=== PATIENT | female | born 1995 | race African-American/Black ===

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

== ENCOUNTER → 2019-08-21 | Outpatient (CLI) | payer BC ==
--- NOTE | 2019-08-21 17:54 | RAD ---
EXAM: 3 views of the right ankle DATE: 08/21/2019 5:17 PM INDICATION: Reason: CHRONIC ANKLE PAIN, MANY YEARS OF SPORTS / Spl. Instructions: / History: COMPARISON: No Prior FINDINGS: No acute fracture or dislocation. Ankle mortise is congruent. Talar dome is intact. Joint spaces are preserved without significant degenerative/proliferative change. No significant soft tissue swelling. Small plantar calcaneal enthesophyte. IMPRESSION: No acute fracture or dislocation. Electronically signed by: Robbie Jung MD (08/21/2019 5:51 PM) [facility]
== END ==
LOC: RAD 17:11
PROVIDERS: ATTEND Family Medicine
DX: M25.571 Pain in right ankle and joints of right foot (principal)
CPT/HCPCS: 73610